=== PATIENT | male | born 1980 | race Two or more races ===

== ENCOUNTER 2017-02-25 20:23 | Emergency (ER) | payer MEDICARE, MEDICAID ==
[~2017-02-25] VITALS: Ht 175.3 cm; Wt 72.6 kg
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
--- NOTE | 2017-02-25 20:43 | NUR ---
DR CERRATO AT BEDSIDE TO EVAL.
[2017-02-25] MEDS ORDERED: IBUPROFEN 400 MG TABLET ONE (20:50)
--- NOTE | 2017-02-25 20:53 | NUR ---
XR AT BEDSIDE.
[2017-02-25] MEDS ORDERED: IBUPROFEN 400 MG TABLET PO ONE (21:00)
[2017-02-25] MEDS ORDERED: HYDROCODONE/APAP 10/325MG 1 EA TABLET PO ONE (21:30)
[2017-02-25] MEDS ORDERED: ONDANSETRON 4 MG TAB.RAPDIS SL ONE (21:30)
[2017-02-25] MEDS ORDERED: ONDANSETRON 4 MG TAB.RAPDIS ONE (21:34)
[2017-02-25] MEDS ORDERED: HYDROCODONE/APAP 10/325MG 1 EA TABLET ONE (21:34)
--- NOTE | 2017-02-25 21:47 | NUR ---
Patient discharged to home in stable condition. Written and verbal after care instructions given. Patient verbalizes understanding of instruction. Patient walked with crutches and with immobilzer on the left knee, distal cms intact. Instructed not to drive, brother to bring patient home. No further complaints.
[2017-02-25 21:50] VITALS: BP 124/84
== END 2017-02-25 21:51 | disposition home or self-care (01) ==
LOC: ER 20:25
DX: S83.92XA Sprain of unspecified site of left knee, initial encounter (principal); V19.9XXA Pedal cyclist (driver) (passenger) injured in unspecified traffic accident, initial encounter; Y93.55 Activity, bike riding; Y92.89 Other specified places as the place of occurrence of the external cause; Y99.9 Unspecified external cause status
CPT/HCPCS: 29505; 73564; 99284; A4606; Q0162; Z7610